=== PATIENT | female | born 1970 | race Caucasian/White ===

== ENCOUNTER 2017-06-27 09:54 | Observation (INO) | payer OTHER, SELFPAY ==
[2017-06-27] VITALS (15 sets, daily range): BP systolic 105–163; BP diastolic 59–100; PULSE 69–87; RESP 11–16; TEMP 36.7–37.2; O2SAT 95–98; BMI 28.5
--- NOTE | 2017-06-27 09:57 | RAD_ITS ---
STUDY: X-RAY CHEST REASON FOR EXAM: Female, 46 years old. Chest pain. TECHNIQUE: Single AP portable view of the chest. COMPARISON: Prior comparison studies are not available for review at this time. FINDINGS: Cardiac monitoring leads are present. The lungs are clear and expanded. There is no demonstrated pleural abnormality. Normal size heart. Normal mediastinum and oskar. Normal visualized pulmonary arteries. Normal visualized aortic arch and descending thoracic aorta. Normal visualized thoracic spine. Normal visualized ribs, clavicles, and shoulders. There is no demonstrated abnormality of the visualized soft tissue structures of the upper abdomen. RAD/Chest 1 View (Portable) IMPRESSION: No radiographic evidence of acute cardiopulmonary disease. Electronically Signed: Joie Montes MD at 10:24 EDT , Service support ,
--- NOTE | 2017-06-27 10:03 | EKG12_ITS ---
Test Reason : CP Blood Pressure : / mmHG Vent. Rate : 076 BPM Atrial Rate : 076 BPM P-R Int : 144 ms QRS Dur : 080 ms QT Int : 380 ms P-R-T Axes : 069 -06 034 degrees QTc Int : 427 ms Normal sinus rhythm Normal ECG Confirmed by SPENCER CERVANTES, BRIANDA ([id number]), senior editor WILLIS BETTS ([id number]) on 06/29/2017 1:06:12 PM Referred By: YANNI/FAVIOLA Confirmed By:BRIANDA PALMER MD
[2017-06-27 10:22] LABS: Absolute Lymphocyte Count 1.77 X10^3/ul (0.83-4.51); Absolute Neutrophil Count 3.9 X10^3/uL (2.0-7.7); Basophil# 0.02 X10^3/uL; Basophil% 0.3 % (0-1); Eosinophil# 0.14 X10^3/uL; Eosinophils% 2.3 % (0-5); Hematocrit 41.5 % (37-47); Hemoglobin 14.2 g/dl (12.0-15.0); Lymphocyte # 1.77 X10^3/ul (4.0); Lymphocyte % 28.6 % (19-41); Mean Corp Hgb Conc 34.2 g/gl (32-36); Mean Corpuscular Hgb 29.7 pg (27.0-32.0); Mean Corpuscular Volume 86.8 fL (81-99); Mean Platelet Vol. 8.7 fl (6.2-12.0); Monocyte# 0.38 X10^3/uL; Monocyte% 6.1 % (0-10); Neutrophil # 3.86 X10^3/uL (2.7-7.7); Neutrophil % 62.5 % (47-70); Platelet Count 365 K/mm3 (150-450); RBC Distribution Width CV 12.5 % (11.6-14.6); RBC Distribution Width SD 40.3 fl (35.1-43.9); Red Blood Count 4.78 M/mm3 (4.2-5.4); White Blood Count 6.2 K/mm3 (4.4-11.0)
[2017-06-27 10:23] LABS: POSITIVE COUNT NO; POSITIVE DIFFERENTIAL NO; POSITIVE MORPHOLOGY NO
[2017-06-27] MEDS: Aspirin 81 MG TAB.CHEW 324 MG PO (10:30)
[2017-06-27 10:39] LABS: D-Dimer Quantitative (DVT/PE) < 0.27 FEU/ug/m (0.27-0.49)
[2017-06-27 10:41] LABS: Anion Gap 8 (5-15); BUN 10 mg/dL (7-18); Chloride 108 mmol/L (98-107); Creatinine, Serum 0.91 mg/dL (0.55-1.02); EST Glomerular Filtration Rate 71 mL/min (>60); Est Glom Filt Rate - Afr Amer 85 mL/min (>60); Glucose 99 mg/dL (74-106); Potassium 3.9 mmol/L (3.5-5.1); Sodium Level 142 mmol/L (136-145)
[2017-06-27] MEDS: 0.9% Normal Saline 1,000 ML 150 ML IV (10:53)
--- NOTE | 2017-06-27 10:57 | ED.DCSUM_ITS ---
- ER Visit Summary Date of Service: 06/27/17 Chief Complaint: [Chest pain] History of Present Illness: The patient is a 46 F [presents with chest discomfort started yesterday. Patient states that she had chest discomfort 3 days ago that lasted about 3 days. Patient also gives history of nausea vomiting and diarrhea that started 2 days ago. Patient states that she has been sweating. Describes a pressure sensation in the center of her chest. Patient feels short of breath with it. Patient sent to the ER for further evaluation by her primary care physician. Patient does have a history of prior pulmonary embolism 7 years ago. Patient states she was anticoagulated for a year but has not been anticoagulated for past 6 years. 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 Physical Examination: HEENT-PERRLA, EOMI. Cranial nerves II through XII grossly intact. TMs clear. Mucous membranes moist. No adenopathy. Cardiovascular-regular rate and rhythm without murmur or ectopy Lungs-clear to auscultation, chest wall stable without crepitus or subcu emphysema Abdomen-normoactive bowel sounds, soft, nontender, no rebound or rigidity, no peritoneal signs. Extremities-intact ?4, normal range of motion, normal pulses, atraumatic[] Test Results: [EKG obtained on arrival shows sinus rhythm with a ventricular rate of 76 bpm with no acute I segment changes. CBC with differential was normal. Chemistries were normal. Troponin was less than 0.02. D-dimer is normal at less than 0.27. Chest x-ray showed nothing acute.] Emergency Department Course and Treatment: [Patient received aspirin in the emergency department and after 3 sublingual nitroglycerin her pain essentially resolved.] Treatment Plan: [Admit for further workup and evaluation] Disposition: [Admit] Impression: [Chest pain-rule out acute coronary syndrome] This note was generated with [employer] dictation software. It may contain incorrect words, spelling, and punctuation that were not noted in review of the chart prior to signing ED Disposition - Plan for ED Patient: Chief Complaint: Chest Pain Referrals: Sean Grullon MD [Primary Care Provider] -
--- NOTE | 2017-06-27 10:58 | HP.PCM_ITS ---
Problem List (1) Chest pain Status: Acute (2) History of pulmonary embolism Status: Chronic History of Present Illness Date of Admission: 06/27/17 Chief Complaint: Chest pain The patient is a 46 year old F previous history of PE for which he was treated with systemic anticoagulation for a year presented with chest pain. Patient symptoms started about 3 weeks prior to her admission when she developed chest discomfort located in the retrosternal region pain apparently lasted for 3 days and resolve. In the morning of her presentation patient had a recurrence this time she also did experience some nausea but denied any vomiting as well as some shortness of breath. Presented to the ED initial set of cardiac enzymes and EKG came back unremarkable admitted to a monitored bed for subsequent evaluation. Past Medical History Past Medical History (Chronic Problems): Chronic Problems History of pulmonary embolism (Chronic) Allergies No Known Allergies Allergy (Verified 06/27/17 10:01) Home Medications: Ambulatory Orders Medication Instructions Recorded Multivitamin [Animal Shapes] 1 tab PO DAILY 06/27/17 Smoking Status: Never smoker - *Family History Paternal History Items: Heart Disease, Stroke Review of Systems Constitutional: Denies: Anorexia, Chills, Fever, Night Sweats, Weight Change HEENT: Denies: Head Aches, Sinus Congestion, Sinus Drainage Cardiovascular: Reports: Chest Pain. Denies: Orthopnea, Palpitations, Paroxysmal Noc. Dyspnea Respiratory: Denies: Cough, Shortness of breath at rest, Shortness of breath upon exertion, Sputum production Gastrointestinal: Reports: Nausea. Denies: Abdominal Pain, Hematemesis, Hematochezia, Melena, Vomiting Genitourinary: Denies: Dysuria, Frequency, Hematuria, Urgency Musculoskeletal: Denies: Joint Pain, Joint Tenderness Skin: Denies: Rash Neurological: Denies: Focal weakness, Numbness, Tingling Psychiatric: Denies: Homicidal Ideations, Suicidal Ideations Hematologic/ Lymphatic: Denies: Easy Bruising, Easy Bleeding VTE Information - Inpt Only VTE Present on Admission: No VTE Mechan Device Prophylaxis: Knee High JAMES Hose VTE Pharm Prophylaxis ordered?: Yes Patient Problems: Active and Suspected Problems Chest pain (Acute) Objective: GENERAL: cooperative and in no apparent distress. HEENT: Clear conjunctiva, moist oral mucosa NECK; supple, normal thyroid, no distended JVD. CHEST: Clear to auscultation bilaterally, no audible rales or wheezes. HEART: Regular S1 S2, no audible murmurs ABDOMEN: soft, non-tender, normoactive bowel sounds, RECTAL: deferred EXTREMITIES: No edema, no clubbing, no cyanosis. 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 SKIN: No lesions no erythema, - Physical Exam Vital Signs Temp Pulse Resp BP Pulse Ox 98.4 F 78 13 114/78 98 06/27/17 09:55 06/27/17 10:52 06/27/17 10:02 06/27/17 10:52 06/27/17 10:02 Oxygen Delivery Method Room Air Weight: 75.387 kg Body Mass Index (BMI) 28.5 Laboratory Tests Past 24 Hrs 06/27/17 06/27/17 06/27/17 10:15 10:15 10:15 WBC 6.2 RBC 4.78 Hgb 14.2 Hct 41.5 MCV 86.8 MCH 29.7 MCHC 34.2 RDW 12.5 RDW Differential 40.3 Plt Count 365 MPV 8.7 Immature Gran % (Auto) 0.200 Neut % (Auto) 62.5 Lymph % (Auto) 28.6 Stone % (Auto) 6.1 Eos % (Auto) 2.3 Baso % (Auto) 0.3 Absolute Neuts (auto) 3.9 Absolute Lymphs (auto) 1.77 Total Counted Not Reportable D-Dimer Quant (PE/DVT) < 0.27 L Sodium 142 Potassium 3.9 Chloride 108 H Carbon Dioxide 26.0 Anion Gap 8 BUN 10 Creatinine 0.91 Estim Creat Clear Calc 66.00 Est GFR (MDRD) Af Amer 85 Est GFR (MDRD) Non-Af 71 BUN/Creatinine Ratio 11.0 Glucose 99 Calcium 9.0 Troponin I < 0.02 Assessment/Plan Active and Suspected Problems Chest pain (Acute) Patient is a 46-year-old lady presented with chest pain 1. Chest pain admitted to monitored bed plan is rule out WI with serial cardiac enzymes patient undergo a nuclear stress test in a.m. if WI is ruled out 2. History of PE given patient presentation and her frequent travels order CT of the chest to rule out PE 3. DVT prophylaxis Lovenox for now Code Visit OBSV E&M: 20534 Initial observation care L3
--- NOTE | 2017-06-27 10:59 | CT_ITS ---
STUDY: CTA CHEST REASON FOR EXAM: Female, 46 years old. Chest pain since yesterday. The pain radiates into the patient's jaw. Patient has diaphoresis. RADIATION DOSAGE (If Supplied By Facility): CTDIvol = ( 9.50 ) mGy, DLP = ( 408.64 ) mGycm TECHNIQUE: The examination was performed with the intravenous administration of 75 ml of Isovue 370 contrast material. Post-processing of the angiographic images was performed, with multiplanar reformation and 3D reconstruction. Individualized dose optimization techniques were used for this CT. COMPARISON: None. FINDINGS: Normal enhancement of the main pulmonary artery and right and left pulmonary arteries. Normal enhancement of the bilateral peripheral pulmonary arteries. There is no demonstrated pulmonary embolism. Normal thoracic aorta and visualized great vessels. There is no demonstrated aortic dissection. Normal heart and pericardium. Normal mediastinum. Normal hilar regions. Normal visualized trachea and bronchi. The lungs are well expanded. Normal pulmonary parenchyma. Normal pleura. Normal chest wall structures. Normal osseous structures. Normal visualized upper abdomen. CT/CTA Chest W/WO Contrast IMPRESSION: No CTA demonstrated pulmonary embolism or arterial dissection. Electronically Signed: Joie Montes MD at 12:01 EDT , Service support ,
[2017-06-27] MEDS: Acetaminophen 325 MG Tablet 650 MG PO (16:27)
[2017-06-27] MEDS: Ibuprofen 600 MG Tablet PO (22:42)
[2017-06-27] MEDS: 0.9% NaCl Peripheral Flush Adult/Peds IV (22:43)
[2017-06-28 02:59] VITALS: PULSE 74
[2017-06-28 05:16] VITALS: BP 114/64; PULSE 68; RESP 18; TEMP 36.6; O2SAT 96
[2017-06-28] MEDS: Aspirin E.C. 81 MG Tablet PO (05:20)
[2017-06-28 05:34] LABS: Hematocrit 39.4 % (37-47); Hemoglobin 13.5 g/dl (12.0-15.0); Mean Corp Hgb Conc 34.3 g/gl (32-36); Mean Corpuscular Hgb 29.8 pg (27.0-32.0); Mean Platelet Vol. 8.9 fl (6.2-12.0); Platelet Count 388 K/mm3 (150-450); RBC Distribution Width CV 12.4 % (11.6-14.6); RBC Distribution Width SD 38.8 fl (35.1-43.9); Red Blood Count 4.53 M/mm3 (4.2-5.4); White Blood Count 6.3 K/mm3 (4.4-11.0)
[2017-06-28 05:37] LABS: International Normalized Ratio 0.9; Prothrombin Time (Protime)PT. 12.1 SECONDS (11.7-14.9)
[2017-06-28 05:38] LABS: Partial Thromboplast Time 34.8 Seconds (24.1-36.2)
[2017-06-28 05:42] LABS: Anion Gap 7 (5-15); BUN 14 mg/dL (7-18); BUN/Creat Ratio 18.3 RATIO (10-20); Calcium,Total 8.5 mg/dL (8.5-10.1); Chloride 108 mmol/L (98-107); Creatinine, Serum 0.77 mg/dL (0.55-1.02); EST Glomerular Filtration Rate 86 mL/min (>60); Est Glom Filt Rate - Afr Amer 104 mL/min (>60); Estimated Creatinine Clearance 77.99 ml/min; Glucose 103 mg/dL (74-106); Potassium 4.1 mmol/L (3.5-5.1); Sodium Level 141 mmol/L (136-145)
[2017-06-28 05:53] LABS: Scan Indicated on CBC? Y/N NO
--- NOTE | 2017-06-28 05:55 | EKG12_ITS ---
Test Reason : AM Blood Pressure : / mmHG Vent. Rate : 076 BPM Atrial Rate : 076 BPM P-R Int : 164 ms QRS Dur : 084 ms QT Int : 388 ms P-R-T Axes : 051 004 015 degrees QTc Int : 436 ms Normal sinus rhythm Low voltage QRS Borderline ECG When compared with ECG of 27-JUN-2017 09:55, MANUAL COMPARISON REQUIRED, DATA IS UNCONFIRMED Confirmed by SPENCER CERVANTES, BRIANDA ([id number]), editor dictionary WILLIS BETTS ([id number]) on 06/29/2017 1:24:13 PM Referred By: ASIF Confirmed By:BRIANDA PALMER MD
[2017-06-28 08:40] VITALS: PULSE 79
[2017-06-28 08:43] VITALS: BP 105/67; PULSE 72; RESP 16; TEMP 36.8; O2SAT 95
--- NOTE | 2017-06-28 09:28 | STRESSREP ---
Stress Test Report Date: 06/28/2017 Procedure: Exercise tolerance test/imaging study Indications: Chest pain Consent: Per the patient Procedure: The patient exercised on a Santo protocol for 9 minutes completing Stage III achieving a peak heart rate of 157 bpm (90 % predicted maximal heart rate) with a peak blood pressure 154/70 mmHg and a peak MET capacity of 10 METs. The baseline ECG demonstrated normal sinus rhythm. The peak exercise ECG demonstrated no obvious ECG changes. There were no cardiac dysrhythmias pretest, during exercise, or recovery. The functional capacity was considered good. There was no complaint of chest discomfort during exercise or recovery. The examination was discontinued secondary to dyspnea and leg discomfort. Impression: 1. Technically adequate (percent predicted maximal heart rate greater than 85%) exercise tolerance test 2. Negative (adequate (ECG exercise tolerance test 3. There were no cardiac dysrhythmias pretest, during exercise, or recovery. 4. Nuclear images pending Myocardial perfusion imaging study: Technique: The patient was injected with 11.2 mCi of technetium 99m Cardiolite and subsequently rest SPECT Cardiolite nuclear imaging was obtained in the horizontal long, vertical long, and short axis views. The patient exercised on a Santo protocol for 9 minutes completing Stage III achieving a peak heart rate of 157 bpm (90 % predicted maximal heart rate) with a peak blood pressure 154/70 mmHg and a peak MET capacity of 10 METs. The patient was injected with mCi of technetium 99m Cardiolite and subsequently stress SPECT Cardiolite nuclear imaging was obtained in the horizontal long, vertical long, and short axis views. A gated Cardiolite study at peak stress was obtained. Interpretation: Rest and stress SPECT Cardiolite nuclear imaging status post realignment, normalization, and attenuation correction, demonstrates the appearance of relative uniform tracer uptake and myocardial perfusion appearing within normal limits. There is end systolic thickening and brightening. The gated Cardiolite study demonstrates myocardial thickening and inward wall motion. The reported LVEF is 75 %. Impression: 1. Rest and stress SPECT Cardiolite nuclear imaging demonstrate relative uniform tracer uptake and myocardial perfusion appearing within normal limits. 2. The gated Cardiolite study reports an LVEF of 75 %. This note was generated with [employer] software. It may contain incorrect words, spelling, and punctuation that were not noted in checking the note before signing.
--- NOTE | 2017-06-28 09:33 | STRESSREP_ITS ---
Stress Test Report Date: 06/28/2017 Procedure: Exercise tolerance test/imaging study Indications: Chest pain Consent: Per the patient Procedure: The patient exercised on a Santo protocol for 9 minutes completing Stage III achieving a peak heart rate of 157 bpm (90 % predicted maximal heart rate) with a peak blood pressure 154/70 mmHg and a peak MET capacity of 10 METs. The baseline ECG demonstrated normal sinus rhythm. The peak exercise ECG demonstrated no obvious ECG changes. There were no cardiac dysrhythmias pretest, during exercise, or recovery. The functional capacity was considered good. There was no complaint of chest discomfort during exercise or recovery. The examination was discontinued secondary to dyspnea and leg discomfort. Impression: 1. Technically adequate (percent predicted maximal heart rate greater than 85% ) exercise tolerance test 2. Negative (adequate (ECG exercise tolerance test 3. There were no cardiac dysrhythmias pretest, during exercise, or recovery. 4. Nuclear images pending Myocardial perfusion imaging study: Technique: The patient was injected with 11.2 mCi of technetium 99m Cardiolite and subsequently rest SPECT Cardiolite nuclear imaging was obtained in the horizontal long, vertical long, and short axis views. The patient exercised on a Santo protocol for 9 minutes completing Stage III achieving a peak heart rate of 157 bpm (90 % predicted maximal heart rate) with a peak blood pressure 154/ 70 mmHg and a peak MET capacity of 10 METs. The patient was injected with mCi of technetium 99m Cardiolite and subsequently stress SPECT Cardiolite nuclear imaging was obtained in the horizontal long, vertical long, and short axis views. A gated Cardiolite study at peak stress was obtained. Interpretation: Rest and stress SPECT Cardiolite nuclear imaging status post realignment, normalization, and attenuation correction, demonstrates the appearance of relative uniform tracer uptake and myocardial perfusion appearing within normal limits. There is end systolic thickening and brightening. The gated Cardiolite study demonstrates myocardial thickening and inward wall motion. The reported LVEF is 75 %. Impression: 1. Rest and stress SPECT Cardiolite nuclear imaging demonstrate relative uniform tracer uptake and myocardial perfusion appearing within normal limits. 2. The gated Cardiolite study reports an LVEF of 75 %. This note was generated with [employer] software. It may contain incorrect words, spelling, and punctuation that were not noted in checking the note before signing.
--- NOTE | 2017-06-28 09:42 | PCM.DC ---
- Discharge Diagnoses Current Active Problems: Current Active and Chronic Problems Chest pain (Acute) History of pulmonary embolism (Chronic) You will use the following diet at home:: No restrictions Discharge Activity: Return to Normal Activity Instructions: ED Chest Pain NonCardiac Allergies/Adverse Reactions: Allergies No Known Allergies Allergy (Verified 06/27/17 10:01) Medications to take at Discharge Multivitamin [Animal Shapes] 1 tab PO DAILY 06/27/17 Primary Care Physician: Sean Grullon MD [Primary Care Provider] - Please follow up with your Primary Care Physician in: in 1-2 weeks Proposed Discharge Date: 06/28/17
--- NOTE | 2017-06-28 09:45 | DS.PCM_ITS ---
Discharge Date and Diagnosis - Problem List Patient Problems: Active and Suspected Problems Chest pain (Acute) Date of Admission: 06/27/17 Date of Discharge: 06/28/17 - Primary Discharge Diagnosis Active and Suspected Problems Chest pain (Acute) - Secondary Discharge Diagnosis Chronic Problems History of pulmonary embolism (Chronic) Hospital Course and Treatment Imaging Results: Clinical Impression(s) from Imaging Studies Chest X-Ray 06/27/17 09:57 IMPRESSION: No radiographic evidence of acute cardiopulmonary disease. Electronically Signed: Joie Montes MD at 10:24 EDT , Service support , Chest CTA 06/27/17 10:59 IMPRESSION: No CTA demonstrated pulmonary embolism or arterial dissection. Electronically Signed: Joie Montes MD at 12:01 EDT , Service support , Summary of Care Provided: Patient is a 46-year-old lady presented with chest pain 1. Chest pain admitted to monitored bed did rule out [place] with serial cardiac enzymes patient underwent a nuclear stress test which is negative for stress- induced ischemia was felt patient chest pain was noncardiac started to follow- up with PCP for subsequent care 2. History of PE given patient presentation and her frequent travels order CT of the chest to rule out PE the study was negative as above 3. DVT prophylaxis Lovenox for now Discharge Diet: No Restrictions Discharge Activity: Return to Normal Activity Home Medications: Medications to take at Discharge Multivitamin [Animal Shapes] 1 tab PO DAILY 06/27/17 Primary Care Physician: Sean Grullon MD [Primary Care Provider] - Please follow up with your Primary Care Physician in: in 1-2 weeks Patient Instructions: ED Chest Pain NonCardiac Disposition: Home Minutes spent on discharge:: 35 Patient Condition:: Stable Medical Necessity - Tobacco Use Smoking Status: Never smoker Meaningful Use Info Meaningful Use Diagnoses (Choose all that apply): None applicable Code Visit OBSV E&M: 49564 Observation care discharge
== END 2017-06-28 09:43 | disposition home or self-care (01) ==
LOC: ED 10:21 → PCU 11:29
PROVIDERS: Admitting Provider Internal Medicine; Emergency Provider Emergency Medicine; Family Provider Family Medicine; PCP Family Medicine; Visit Provider Internal Medicine
DX: R07.89 Other chest pain (principal); R11.2 Nausea with vomiting, unspecified; R19.7 Diarrhea, unspecified; R06.02 Shortness of breath; Z86.711 Personal history of pulmonary embolism
CPT/HCPCS: 36415; 71045; 71275; 78452; 80048; 84484; 85025; 85027; 85379; 85610; 85730; 93005; 93017; 96360; 99218; 99285; A9500; Q9967; A4216; G0378